=== PATIENT | female | born 1980 | race Hispanic/Latino ===

== ENCOUNTER → 2018-07-03 | Outpatient (CLI) | payer BC ==
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
== END ==
LOC: CT 09:26
PROVIDERS: ATTEND Family Medicine
DX: R10.2 Pelvic and perineal pain (principal); R10.31 Right lower quadrant pain; V89.2XXA Person injured in unspecified motor-vehicle accident, traffic, initial encounter
CPT/HCPCS: 74176; 81025

== ENCOUNTER 2022-02-27 10:02 | Observation (INO) | payer BC ==
[~2022-02-27] VITALS: Ht 149.9 cm; Wt 49.9 kg
[2022-02-27] MEDS ORDERED: SODIUM CHLORIDE 0.9% 1000ML 1,000 ML IV STA ×2 (10:08→10:19)
[2022-02-27] MEDS ORDERED: KETOROLAC TROMETHAMINE 30 MG/ML VIAL IV STA (10:16)
[2022-02-27] MEDS ORDERED: Morphine 2mg Syringe 2 MG/ML SYR IV STA ×2 (10:16→12:27)
[2022-02-27] MEDS ORDERED: ONDANSETRON HCL INJ 2MG/ML 2ML 2 MG/ML VIAL IV STA ×2 (10:16→12:27)
[2022-02-27 10:53] LABS: BASOPHILS % 0.1 % (0.0-1.0); HEMATOCRIT 37.7 % (34.2-44.1); LYMPHOCYTES # (AUTO) 0.5 (1.0-3.2); MEAN CORPUSCULAR HEMOGLOBIN 28.4 pg (28-32); MEAN CORPUSCULAR HGB CONC 31.8 g/dL (31-35); MEAN CORPUSCULAR VOLUME 89.3 fL (81-99); MONOCYTES # (AUTO) 0.6 (0.2-0.8); MONOCYTES % 6.9 % (4.4-11.3); NEUTROPHILS # (AUTO) 6.9 (2.1-6.9); NEUTROPHILS % 86.7 % (38.7-80.0); PLATELET COUNT 231 x10e3/uL (140-360); RED BLOOD COUNT 4.22 x10e6/uL (3.6-5.1); RED CELL DISTRIBUTION WIDTH 13.1 % (11.7-14.4)
[2022-02-27 11:08] LABS: INR 1.05; PROTHROMBIN TIME 14.7 seconds (11.9-14.5)
[2022-02-27 11:09] LABS: PARTIAL THROMBOPLASTIN TIME 32.3 seconds (23.8-35.5)
[2022-02-27 11:19] LABS: ALANINE AMINOTRANSFERASE 9 IU/L (0-55); ALBUMIN 3.6 g/dL (3.5-5.0); ALBUMIN/GLOBULIN RATIO 0.9 (0.8-2.0); ALKALINE PHOSPHATASE 53 IU/L (40-150); ANION GAP 12.2 mmol/L (8-16); BLOOD UREA NITROGEN 13 mg/dL (7-26); BUN/CREATININE RATIO 18 (6-25); CALCIUM 8.1 mg/dL (8.4-10.2); CARBON DIOXIDE 24 mmol/L (22-29); CHLORIDE 105 mmol/L (98-107); CREATINE KINASE 66 IU/L (29-168); CREATININE, SERUM 0.71 mg/dL (0.57-1.11); GLUCOSE 123 mg/dL (74-118); LIPASE 48 U/L (8-78); MAGNESIUM 1.7 MG/DL (1.3-2.1); POTASSIUM 3.2 mmol/L (3.5-5.1); SODIUM 138 mmol/L (136-145)
[2022-02-27 11:51] LABS: CLARITY,URINE SL CLOUDY (CLEAR); COLOR,URINE YELLOW (YELLOW); KETONES,URINE 2+ (NEGATIVE); LEUKOCYTE ESTERASE ,URINE TRACE (NEGATIVE); NITRITE,URINE NEGATIVE (NEGATIVE); PROTEIN,URINE DIPSTICK 2+ (NEGATIVE); URINE UROBILINOGEN 0.2 mg/dL (0.2 - 1)
[2022-02-27 12:11] LABS: WBC,URINE (MAN) 21-50 /HPF (0-5)
[2022-02-27 12:12] LABS: BACTERIA,URINE MODERATE /HPF; RBC,URINE 0-5 /HPF (0-5)
[2022-02-27 12:13] LABS: EPITHELIAL CELLS,URINE FEW /LPF
[2022-02-27 12:14] LABS: TRANSITIONAL EPI CELLS,URINE RARE
[2022-02-27] MEDS ORDERED: POTASSIUM CHLORIDE 20 MEQ TAB CR PO STA (12:51)
[2022-02-27] MEDS ORDERED: KCL 20MEQ/.9 SOD CHL 1,000 ML IV ONE (13:00)
[2022-02-27] MEDS ORDERED: ACETAMINOPHEN 1000 MG/100 ML IV STA (13:07)
[2022-02-27] MEDS ORDERED: Morphine 2mg Syringe 2 MG/ML SYR IV PRN (13:15)
[2022-02-27] MEDS ORDERED: ONDANSETRON HCL INJ 2MG/ML 2ML 2 MG/ML VIAL IV PRN (13:15)
[2022-02-27] MEDS ORDERED: PROMETHAZINE HCL (IM) 25 MG/ML VIAL IM PRN (13:15)
[2022-02-27] MEDS: ACETAMINOPHEN 325 MG TAB PO PRN (18:42)
[2022-02-27 18:46] VITALS: BP 127/85
[2022-02-27 19:00] VITALS: BP 121/76
[2022-02-27 20:00] VITALS: BP 121/76
[2022-02-27] MEDS ORDERED: HYDROXYCHLOROQ200 MG PO (20:09)
[2022-02-27] MEDS ORDERED: CYCLOBENZAPRINE10 MG PO (20:09)
[2022-02-27] MEDS ORDERED: ULTRAM 50MG50 MG PO (20:09)
[2022-02-27] MEDS ORDERED: GABAPENTIN 100 MG CAP PO SCH (21:00)
[2022-02-28] VITALS: BP 110/70
[2022-02-28 04:00] VITALS: BP 132/74
[2022-02-28] MEDS: ACETAMINOPHEN 325 MG TAB PO PRN ×2 (05:30→17:07)
[2022-02-28 06:22] LABS: BASOPHILS % 0.1 % (0.0-1.0); HEMATOCRIT 33.4 % (34.2-44.1); HEMOGLOBIN 10.4 g/dL (12.0-16.0); LYMPHOCYTES % 12.5 % (18.0-39.1); MEAN CORPUSCULAR HEMOGLOBIN 28.4 pg (28-32); MEAN CORPUSCULAR HGB CONC 31.1 g/dL (31-35); MEAN CORPUSCULAR VOLUME 91.3 fL (81-99); MONOCYTES # (AUTO) 0.5 (0.2-0.8); MONOCYTES % 5.8 % (4.4-11.3); NEUTROPHILS # (AUTO) 6.5 (2.1-6.9); NEUTROPHILS % 81.2 % (38.7-80.0); PLATELET COUNT 194 x10e3/uL (140-360); RED BLOOD COUNT 3.66 x10e6/uL (3.6-5.1); RED CELL DISTRIBUTION WIDTH 13.1 % (11.7-14.4)
[2022-02-28 07:05] LABS: ALBUMIN 2.9 g/dL (3.5-5.0); ALBUMIN/GLOBULIN RATIO 0.8 (0.8-2.0); ANION GAP 12.6 mmol/L (8-16); CALCIUM 7.4 mg/dL (8.4-10.2); CREATININE, SERUM 0.68 mg/dL (0.57-1.11); POTASSIUM 3.6 mmol/L (3.5-5.1)
[2022-02-28 08:00] VITALS: BP 132/74
[2022-02-28 08:08] VITALS: BP 105/66
[2022-02-28 12:01] VITALS: BP 102/62
[2022-02-28 16:22] VITALS: BP 116/72
[2022-02-28] MEDS ORDERED: LEVOFLOXACIN250 MG PO (17:52)
[2022-02-28] MEDS ORDERED: NEURONTIN100 MG PO (17:52)
== END 2022-02-28 18:51 | disposition home or self-care (01) ==
LOC: ER 10:10 → ERHOLD 13:12 → MED/SURG2 18:05
PROVIDERS: ADMIT Family Medicine; ATTEND Family Medicine
DX: N10 Acute pyelonephritis (principal); N83.201 Unspecified ovarian cyst, right side; L93.0 Discoid lupus erythematosus; Z88.1 Allergy status to other antibiotic agents; Z91.041 Radiographic dye allergy status; D84.821 Immunodeficiency due to drugs; F41.9 Anxiety disorder, unspecified; G89.4 Chronic pain syndrome; Z20.822 Contact with and (suspected) exposure to COVID-19
CPT/HCPCS: 36415 ×2; 74176; 76830; 76856; 80053 ×2; 81001; 82550; 82553; 83605; 83690; 83735; 84484; 84702; 85025 ×2; 85610; 85730; 87040; 87086; 99284; C9113; G0378 ×2; J1885; J2270 ×2; J2405; J2543 ×2; J7030; U0002